=== PATIENT | male | born 1965 | race Caucasian/White ===

== ENCOUNTER 2019-01-26 23:16 | Emergency (ER) | payer BC, OTHER ==
[~2019-01-26] VITALS: Ht 175.3 cm; Wt 74.8 kg
[2019-01-26 23:16] VITALS: BP 132/92
--- NOTE | 2019-01-26 23:19 | NUR ---
ASSISTED PT TO ER BED 5, URINARY CATHETER UNCLOGGED WITH USE OF PISTON SYRINGE ASPIRATION, NOTED WITH CLOTS AND HEMATURIA.
--- NOTE | 2019-01-26 23:26 | NUR ---
PT VERBALIZE RELIEF POST CATH ASPIRATION APPROXIMATELY 500ML'S OF BLOODY URINE WITH CLOTS.
--- NOTE | 2019-01-26 23:46 | NUR ---
URINARY CATHETER IRRIGATED WITH 500ML'S NS, MODERATE AMOUNT OF CLOTS NOTED. ER MADE AWARE.
== END 2019-01-27 00:21 | disposition home or self-care (01) ==
LOC: ER 23:19
DX: T83.018A Breakdown (mechanical) of other urinary catheter, initial encounter (principal)